=== PATIENT | male | born 1955 | race Caucasian/White ===

== ENCOUNTER 2017-03-26 21:31 | Emergency (ER) | payer OTHER ==
[~2017-03-26] VITALS: Ht 180.3 cm; Wt 95.6 kg
[2017-03-27 00:02] LABS: HEMATOCRIT 39.6 % (38.0-50.0); MCH 30.8 PG (29.0-34.0); MCHC 34.3 G/DL (30.0-36.0); MCV 89.8 FL (86-99); MEAN PLAT.VOLUME 11.6 uM^3 (9.0-12.4); PLATELET COUNT 142 K/uL (156-360); RBC DIS.WIDTH-CV 13.1 % (11.8-14.6); RBC DIS.WIDTH-SD 43.1 % (39-53); RED BLOOD COUNT 4.41 M/uL (4.00-5.50); WHITE BLOOD COUNT 6.5 K/uL (4.1-10.2)
[2017-03-27 00:11] LABS: CHLORIDE 108 mEq/L (99-109); SODIUM 143 mEq/L (136-147)
[2017-03-27 00:12] LABS: GLUCOSE 98 mg/dL (70-99)
[2017-03-27 00:14] LABS: ANION GAP 10 MEQ/L (2-14)
[2017-03-27 00:15] LABS: INTER. NORMALIZED RATIO 1.1; PROTHROMBIN TIME 10.7 (9.2-11.2); PTT 25.7 (25-32)
[2017-03-27 00:17] LABS: UREA NITROGEN (BUN) 18 mg/dL (9-23)
[2017-03-27 00:42] LABS: GFR ESTIMATE (CALCULATED) > 59 mL/min/
[2017-03-27] MEDS ORDERED: NORCO 5/3251 TABLET PO (01:08)
[2017-03-27] MEDS ORDERED: BACTRIM,SEPT1 TABLET PO (01:08)
[2017-03-27 01:51] VITALS: BP 128/74
== END 2017-03-27 02:04 | disposition home or self-care (01) ==
LOC: EME 21:31
PROVIDERS: Emergency Medicine
DX: L03.115 Cellulitis of right lower limb (principal); E78.5 Hyperlipidemia, unspecified; I10 Essential (primary) hypertension
CPT/HCPCS: 80048; 85027; 85610; 85730; 93971; 99281; 99284